=== PATIENT | female | born 1985 | race American Indian/Alaskan Native ===

== ENCOUNTER 2021-08-09 15:36 | Emergency (ER) | payer OTHER | END 2021-08-09 17:56 | disposition left against medical advice (07) | LOC: ED 15:36 | DX: R07.89 Other chest pain (principal); R10.9 Unspecified abdominal pain; Z53.21 Procedure and treatment not carried out due to patient leaving prior to being seen by health care provider ==

== ENCOUNTER 2021-10-10 05:54 | Inpatient (IN) | payer OTHER ==
[2021-10-04 13:17] LABS: Basophils % (Auto) 0.7 % (0.0-1.8); Eosinophils # (Auto) 0.4 K/mm3 (0.0-0.4); Hematocrit 34.2 % (30.3-42.9); Hemoglobin 10.7 gm/dl (10.1-14.3); Lymphocytes # (Auto) 1.7 K/mm3 (1.2-5.4); Lymphocytes % (Auto) 29.6 % (13.4-35.0); Mean Corpuscular HGB Conc 31 % (30-34); Mean Corpuscular Volume 72 fl (79-97); Monocytes # (Auto) 0.4 K/mm3 (0.0-0.8); Monocytes % (Auto) 6.2 % (0.0-7.3); Platelet Count 263 K/mm3 (140-440); Red Blood Count 4.73 M/mm3 (3.65-5.03)
[2021-10-04 13:32] LABS: Red Cell Distribution Width 24.1 % (13.2-15.2)
[2021-10-04 13:33] LABS: BUN/Creatinine Ratio 6; Blood Urea Nitrogen 7 mg/dL (7-17); Calcium 9.7 mg/dL (8.4-10.2); Hemolysis Index 3
--- NOTE | 2021-10-09 16:29 | History and Physical Report ---
History of Present Illness Date of examination: 10/04/21 Date of admission: 10/10/21 Chief complaint: heavy periods History of present illness: Visit Type: Pre-Op CC: no complaints. History of Present Illness: Pt presents for Pre Op. No c/o. ..................... ................................................Gemini Doyle October 04, 2021 10:45 AM mask,Patient denies fever, cough, shortness of breath and exposure to COVID-19. Pt here for pre op for myomectomy. She had previous myomectomy in October on 2020. Currently has 6cm intrauteirne fibroid and severe menorrhagia that has caused her hospital admission for blood transfusions as well as recurrent iron transfusions. All risk/benefits/alternatives were d/w pt and questions were addressed and answered. Consents signed and plcaced on the chart. Vital Signs: Patient Profile: 36 Years Old Female LMP: 09/13/2021 Height: 67 inches Weight: 222 pounds BMI: 34.77 Temp: 97.6 degrees F BP sittin / 74 (left arm) Menstrual History: LMP (date): 09/13/2021 Past History : 0 FOOD CHECKER History Uterine Surgery (not C/S): negative Operations: positive Breast Reduction: 2009 Myomectomy:09/2020 Hospitalizations: negative Anesthesia Complications: negative Abnormal PAP: negative Uterine Anomaly: negative BLU Exposure: negative Infertility: negative Infection History HIV Risk Eval: no Personal hx. of genital herpes: no Hx of STD: Trichomonas Other: chlamydia GC Active Medications (reviewed today): norethindrone acetate 5 mg tablet (norethindrone acetate) 1 tablet by mouth twice a day (21) 1.5-30 mg-mcg tablet (norethindrone ac-eth estradiol) 1 tablet by mouth three times a day take 3 times per day for 3 days. then 2 times per day for 3 days then on time per day until end of pack. Then start new pack metronidazole 500 mg tablet (metronidazole) Take 1 tablet by mouth twice a day Take with food. Do not drink alcohol while taking this medication. Provera 10 mg tablet (medroxyprogesterone) Take 1 tablet by mouth three times a day for 10 days as directed ferrous sulfate 325 mg (65 mg iron) tablet (ferrous sulfate) 1 tablet by mouth once a day ibuprofen 800 mg tablet (ibuprofen) 1 tablet by mouth every eight hours as needed for pain Current Allergies (reviewed today): No known allergies Past Medical History: Reviewed history from 06/14/2021 and no changes required: Asthma Fibroids PCOS Past Surgical History: Reviewed history from 06/14/2021 and no changes required: positive Breast Reduction: 2009 Myomectomy:09/2020 [--[facility]] Risk Factors: Smoked Tobacco Use: Never smoker Smokeless Tobacco Use: Never Passive Smoke Exposure: no HIV High Risk Behavior: no Exercise: no Seatbelt Use: 100 % [[facility]] [Labs In-House] Physical Exam Appearance: well developed, well nourished, no acute distress Other Exams Lungs: no rales, rhonchi, or wheezes Heart: S1, S2, no murmur, rub, or gallop Abdomen: soft, non-tender, no masses, bowel sounds normal Extremities: normal alignment, no joint enlargement, crepitus, masses or tenderness; normal tone and strength Genitourinary Exam Comments: deferred Past History Past Medical History: other (see hpi) Past Surgical History: other (see hpi) FOOD CHECKER History: other (see hpi) Family/Genetic History: other (see hpi) Social history: other (see hpi) Medications and Allergies Allergies Allergy/AdvReac Type Severity Reaction Status Date / Time Penicillins Allergy migraine Verified 10/03/21 11:29 Sulfa (Sulfonamide Allergy Migraine Verified 10/03/21 11:29 Antibiotics) Home Medications Medication Instructions Recorded Confirmed Last Taken Type Albuterol Sulfate [Proventil Hfa] 2 puff IH Q4H PRN 10/03/21 10/03/21 Unknown History DULoxetine [Cymbalta] 30 mg PO QDAY 10/03/21 10/03/21 Unknown History Review of Systems All systems: negative - Vital Signs Vital signs: Vital Signs Temp Pulse Resp BP Pulse Ox 98.7 F 64 18 117/78 100 10/04/21 13:00 10/04/21 13:00 10/04/21 13:00 10/04/21 13:00 10/04/21 13:00 Temp Pulse Resp BP Pulse Ox 98.7 F 64 18 117/78 100 10/04/21 13:00 10/04/21 13:00 10/04/21 13:00 10/04/21 13:00 10/04/21 13:00 - Physical Exam Breasts: Positive: deferred Cardiovascular: Normal S1, Normal S2 Lungs: Positive: Clear to auscultation, Normal air movement Abdomen: Positive: normal appearance, soft. Negative: distention, tenderness, guarding Genitourinary (Female): Positive: other (deferred until EUA) Results Result Diagrams: 10/04/21 13:00 10/04/21 13:00 All other labs normal. Assessment and Plan - Patient Problems (1) Fibroids, submucosal Status: Acute Plan to address problem: -admit -preapare for abd myomectomy. All risk,benefits, and alternatives were d/w pt and questions were addressed and answered. -consents signed and placed on the chart. (2) Menometrorrhagia Status: Acute
[2021-10-10] MEDS ORDERED: BACTERIOSTATIC SODIUM CHLORIDE 0.9% 30 ML VIAL INFILTRATI ONE (06:46)
[2021-10-10] MEDS ORDERED: SODIUM CHLORIDE 0.9% P/F 10 ML VIAL INFILTRATI NR (07:00)
[2021-10-10] MEDS ORDERED: BUPIVACAINE/PF (0.25%) 2.5 MG/ML 30 ML VIAL INFILTRATI SCH (07:00)
[2021-10-10] MEDS ORDERED: fentaNYL 100 MCG/2 ML INJ IV SCH (07:00)
[2021-10-10] MEDS ORDERED: MIDAZOLAM 2 MG/2 ML INJ IV NR (07:00)
[2021-10-10] MEDS ORDERED: SCOPOLAMINE TRANSDERMAL PATCH 72 HR TD NR (07:00)
[2021-10-10] MEDS ORDERED: VASOPRESSIN 20 UNIT/1 ML INJ ONE (07:10)
[2021-10-10] MEDS: LACTATED RINGERS 1,000 ML IV SCH ×2 (07:10→16:03)
[2021-10-10] MEDS ORDERED: SODIUM CHLORIDE 0.9% 100 ML ONE (07:10)
[2021-10-10] MEDS ORDERED: ANTICOAGULANT SOD CITRATE SOLUTION MC ONE ×2 (07:10→09:02)
[2021-10-10] MEDS ORDERED: SCOPOLAMINE TRANSDERMAL PATCH 72 HR TD ONE (07:23)
--- NOTE | 2021-10-10 07:23 | Anesthesia Consultation ---
Anesthesia Consult and Med Hx Date of service: 10/10/21 - Airway Anesthetic Teeth Evaluation: Good (glued on bead on the upper front incisors) ROM Head & Neck: Adequate Mental/Hyoid Distance: Adequate Mallampati Class: Class II Intubation Access Assessment: Probably Good - Pre-Operative Health Status ASA Pre-Surgery Classification: ASA2 Proposed Anesthetic Plan: General Nerve Block: TAP - Pulmonary Hx Asthma: Yes (Last used inhaler 10/02/21) - Central Nervous System Hx Psychiatric Problems: Yes - Hematic Hx Anemia: Yes (Reciving Fe infusions) Hx Sickle Cell Disease: Yes (Trait only) - Other Systems Hx Alcohol Use: Yes (Occas) Hx Cancer: No Hx Obesity: Yes (BMI 34.1)
[2021-10-10] MEDS ORDERED: fentaNYL 100 MCG/2 ML INJ ONE (07:24)
[2021-10-10] MEDS ORDERED: FAMOTIDINE 20 MG/2 ML INJ IV ONE (07:24)
[2021-10-10] MEDS ORDERED: MIDAZOLAM 2 MG/2 ML INJ ONE (07:24)
--- NOTE | 2021-10-10 07:24 | Anesthesia Day of Surgery ---
Anesthesia Day of Surgery - Day of Surgery Patient Examined: Yes Patient H&P Reviewed: Yes Patient is NPO: Yes
[2021-10-10] MEDS ORDERED: BUPIVACAINE/PF (0.25%) 2.5 MG/ML 30 ML VIAL INFILTRATI ONE (07:27)
[2021-10-10] MEDS ORDERED: LIDOCAINE (1%) 10 MG/1 ML VIAL 20 ML MDV INFILTRATI NR (07:30)
[2021-10-10] MEDS ORDERED: dexAMETHasone 4 MG/ML VIAL ONE (07:37)
[2021-10-10] MEDS ORDERED: LIDOCAINE MPF (2%) 20 MG/1 ML VIAL 5 ML ONE (07:39)
[2021-10-10] MEDS ORDERED: propofoL 200 MG/20 ML VIAL IV ONE (07:39)
[2021-10-10] MEDS ORDERED: ROCURONIUM 50 MG/5 ML INJ IV ONE (07:39)
[2021-10-10] MEDS ORDERED: ONDANSETRON 4 MG/2 ML INJ ONE (07:39)
[2021-10-10] MEDS ORDERED: HYDROmorphone 1 MG/1 ML INJ ONE (07:39)
[2021-10-10] MEDS ORDERED: GENTAMICIN 80 MG in SODIUM CHLORIDE 0.9% 100 ML IV ONE (07:57)
[2021-10-10] MEDS ORDERED: GENTAMICIN/NS 120MG/100ML 120 MG/100 ML BAG IV SCH (08:00)
[2021-10-10] MEDS ORDERED: GENTAMICIN/NS 80 MG/100 ML 100 ML IV SCH (08:00)
[2021-10-10] MEDS ORDERED: BUPIVACAINE/PF (0.5%) 5 MG/1 ML 10 ML VIAL INFILTRATI NR (08:00)
[2021-10-10] MEDS ORDERED: FAMOTIDINE 20 MG/2 ML INJ IV NR (08:00)
[2021-10-10] MEDS ORDERED: GENTAMICIN/NS 80 MG/100 ML 100 ML IV ONE (08:03)
[2021-10-10] MEDS ORDERED: VASOPRESSIN 20 UNIT/1 ML INJ IM ONE (09:02)
[2021-10-10] MEDS ORDERED: SODIUM CHLORIDE 0.9% IRR 1,500 ML BOTTLE IR ONE (09:02)
[2021-10-10] MEDS ORDERED: SODIUM CHLORIDE 0.9% 100 ML IVPB IV ONE (09:02)
[2021-10-10] MEDS ORDERED: NEOSTIGMINE 10MG/10 ML INJ MDV ONE (10:04)
[2021-10-10] MEDS ORDERED: GLYCOPYRROLATE 0.4 MG/2 ML INJ ONE (10:04)
--- NOTE | 2021-10-10 10:04 | Operative Report ---
Operative Report Operative Report: Date of procedure: 10/10/2021 Pre-operative diagnosis: Menorrhagia Intrauterine fibroid Post-operative diagnosis: Same Procedure name(s): 1. Abdominal myomectomy 2. Examine anesthesia Surgeon: Dr. Orquidea Pruitt Foot Specialist: Dr. Neves Anesthesia: Gen. endotracheal anesthesia EBL: 75 mL Urine output: 150 mL of clear urine out at end the procedure Fluids: 1200 mL Findings: Approximately 6 to 7 cm cluster of fibroids removed from the uterus. Removal of the fibroid did result in entry into the uterine cavity. What appeared to be normal tubes bilaterally normal ovaries Indications: Patient with a history of fibroids and prolonged heavy menstrual bleeding desired removal of fibroid. All risk benefits and alternatives were discussed with the patient. Consents were signed and placed on the chart. Procedure: Procedure: Patient was taken to the operating room wishes placed under general endotracheal anesthesia in dorsal lithotomy position. The patient was then prepped and draped in normal sterile fashion. A low transverse abdominal incision was made with the scalpel and carried down to the underlying layer of fascia with the Bovie. The fascia was incised in the midline and this incision was extended bilaterally with the Bovie. The superior aspect of the fascia was grasped with clamps and dissected off the anterior rectus muscle. In similar fashion the inferior aspect of the fascia was grasped with [place] clamps and dissected off the anterior rectus muscle. The rectus muscles were bluntly divided in the midline. The peritoneum was identified and entered into sharply. This incision was extended superiorly and inferiorly via blunt and sharp d issection. The bowel was packed away with wet laps. The O'Deni-O'Cruz retractor was placed. The uterus was then exteriorized. Pitressin was placed subserosally over the post uterus to the fundus. The myomectomy was performed in usual fashion with the removal of one cluster of fibroids as stated above. Single posterior uterine incision were closed using several layers with 0 Vicryl. Excellent hemostasis was noted. There was copiously irrigated. Interceed was placed over the uterine incision. The uterus was returned to the abdomen. All instruments and laps were removed from the abdomen. Anterior rectus muscles were reapproximated using 3-0 Vicryl in a [id number] stitch. The anterior rectus fascia was reapproximated using 0 Vicryl in a running fashion. The subcutaneous fat was reapproximated using 2-0 Vicryl in interrupted sutures. The skin was reapproximated with 4-0 Monocryl in a running fashion with Surgicel placed over the skin incision. Sponge lap and needle counts were all correct 3. Patient was taken to the recovery room awake and in stable condition.
[2021-10-10] MEDS ORDERED: HYDROmorphone 0.5 MG/0.5 ML INJ ONE (10:08)
[2021-10-10] MEDS: HYDROmorphone 0.5 MG/0.5 ML INJ IV PRN ×4 (10:09→14:00)
[2021-10-10] MEDS ORDERED: ONDANSETRON 4 MG/2 ML INJ IV PRN ×2 (10:14→11:00)
[2021-10-10] MEDS ORDERED: IBUPROFEN 800 MG TAB PO PRN (11:00)
[2021-10-10] MEDS ORDERED: ACETAMINOPHEN 325 MG TAB PO PRN (11:00)
--- NOTE | 2021-10-10 11:59 | Post Anesthesia Evaluation ---
- Post Anesthesia Evaluation Patient Participated: Yes Airway Patent: Yes Stable Respiratory Function: Yes Nausea/Vomiting: No Temp > 96.8F: Yes Pain Manageable: Yes Adequeate Hydration: Yes Anesthesia Complications: No Block Receding Appropriately: Yes Patient on Ventilator: No
[2021-10-10] MEDS: GENTAMICIN/NS 80 MG/100 ML 100 ML IV SCH ×2 (16:04→23:52)
[2021-10-10] MEDS: KETOROLAC 30 MG/1 ML INJ IV PRN (16:06)
--- NOTE | 2021-10-10 16:12 | Event Note ---
Date: 10/10/21 (POST OP CHECK) Pt doing well. Findings were d/w pt. Just received pain meds so pain is well controlled at this time. Picture was also text to pt phone as per her request from provider. I d/w plan of care to DANE D/conchita valentin in 12 hours or the am and if stable d/c home tomorrow pm or am. She expressed understanding and all questions were addressed and answered.
[2021-10-10] MEDS: CLINDAMYCIN 600 MG/50 mL 600 MG/50 ML BAG IV SCH (18:26)
[2021-10-10] MEDS: oxyCODONE /ACETAMINOPHEN 5-325MG TAB PO PRN (21:40)
[2021-10-10] MEDS: diphenhydrAMINE 25 MG CAP PO PRN (21:40)
[2021-10-11] MEDS: CLINDAMYCIN 600 MG/50 mL 600 MG/50 ML BAG IV SCH (00:53)
--- NOTE | 2021-10-11 01:55 | Event Note ---
Date: 10/11/21 Patient called the answering service from her room with c/o smelling BV when she cleaned herself. RN made aware. Will pass along message to provider who performed the surgery.
[2021-10-11] MEDS: LACTATED RINGERS 1,000 ML IV SCH (02:03)
[2021-10-11] MEDS: KETOROLAC 30 MG/1 ML INJ IV PRN ×2 (02:56→08:41)
[2021-10-11 05:49] LABS: Hematocrit 30.2 % (30.3-42.9); Hemoglobin 9.3 gm/dl (10.1-14.3)
--- NOTE | 2021-10-11 08:27 | Progress Note ---
Assessment and Plan - Patient Problems (1) Fibroids, submucosal Current Visit: No Status: Acute (2) Menometrorrhagia Current Visit: No Status: Acute (3) S/P myomectomy Current Visit: Yes Status: Acute Plan to address problem: -doing well -routine post op care -d/c this pm or in the am pending pt progress. Subjective - Subjective Date of service: 10/11/21 Principal diagnosis: POD#1 s/p abdominal myomectomy Interval history: Pt did c/o feeling as if she has bv but states since showering and she no longer notes an odor. I advised that we will just monitor for now. She has had spontaneous voiding, +flattus and is asking for regular diet this pm. She does have anemia but no sx at this time and also notes that bleeding is much spray gun striper today than prior to sx when she came in. States overall she is doing well. I advised that if she con't to do well will consider d/c home this pm instead of in the am. Pt expressed understanding and agrees with plan of care a this time. Patient reports: appetite normal, voiding normally, pain well controlled, flatus, ambulating normally, no dizzy ambulation, no nauseated Objective - Vital Signs Latest vital signs: Vital Signs Temp Pulse Resp BP BP Pulse Ox 10/11/21 04:30 98.0 F 74 16 110/61 97 10/11/21 00:55 98.7 F 69 18 122/71 98 10/10/21 21:00 98 10/10/21 20:09 98.2 F 64 18 125/67 99 10/10/21 16:36 16 10/10/21 16:35 97.6 F 58 L 20 113/65 99 10/10/21 16:06 16 10/10/21 11:40 98.5 F 94 H 18 137/88 96 10/10/21 11:15 87 14 132/93 96 10/10/21 11:00 97.1 F L 92 H 14 146/86 100 10/10/21 10:45 87 14 143/88 100 10/10/21 10:30 92 H 14 142/90 100 10/10/21 10:15 90 14 139/84 100 10/10/21 10:10 81 14 139/88 100 10/10/21 10:05 85 14 126/78 100 10/10/21 10:01 97.2 F L 87 14 145/90 100 Intake and Output 10/10/21 10/11/21 10/11/21 22:59 06:59 14:59 Intake Total 2819.743 6436 Output Total 800 1850 Balance 358.333 -450 Intake: IV 1572.735 8271 CLEOCIN 600 MG/50 mL 600 50 mg In 50 ml @ 100 mls/hr IV Q8H MADHAV Rx#:[id number] Gentamicin/Ns 80 mg/100 100 ml 100 ml @ 200 mls/hr IV Q8H MADHAV Rx#:[id number] Lactated Ringers 1,000 ml 215.259 5277 @ 100 mls/hr IV DIRECT MADHAV Rx#:[id number] Oral 120 100 Intake, Free Water 300 Output: Urine 800 1850 Indwelling Catheter 800 1850 Other: Total, Intake Amount 120 100 Total, Output Amount 800 350 Voiding Method Indwelling Catheter - Exam Cardiovascular: Present: Normal S1, Normal S2 Lungs: Present: Clear to auscultation, Normal air movement Abdomen: Present: normal appearance, soft, normal bowel sounds. Absent: distention, tenderness, guarding Incision: Present: normal, dry, intact (open to air) - Labs Labs: Abnormal lab results 10/11/21 Range/Units 05:20 Hgb 9.3 L (10.1-14.3) gm/dl Hct 30.2 L (30.3-42.9) %
[2021-10-11] MEDS: oxyCODONE /ACETAMINOPHEN 5-325MG TAB PO PRN (14:29)
[2021-10-11] MEDS: diphenhydrAMINE 25 MG CAP PO PRN (14:30)
--- NOTE | 2021-10-11 20:17 | Discharge Summary ---
Providers - Providers Date of Admission: 10/10/21 05:54 Attending physician: ASIF MILLER Primary care physician: MATCH UP PERSON Hospitalization Disposition: 30 STILL A PATIENT - Discharge Diagnoses (1) Fibroids, submucosal Status: Acute (2) Menometrorrhagia Status: Acute (3) S/P myomectomy Status: Acute Plan - Discharge Medications Prescriptions: Docusate Sodium [Colace] 100 mg PO BID PRN #60 capsule PRN Reason: Constipation Ibuprofen [Motrin 800 MG tab] 800 mg PO Q8HR PRN #30 tablet PRN Reason: Pain, Moderate (4-6) oxyCODONE /ACETAMINOPHEN [Percocet 5/325] 1 tab PO Q4HR #20 tab - Provider Discharge Summary Activity: routine, no sex for 6 weeks, no heavy lifting 4 weeks Diet: routine Instructions: routine Additional instructions: [] Smoking cessation referral if applicable(refer to patient education folder for contact #) [] Refer to [facility]'s [facility] Booklet Call your doctor immediately for: * Fever > 100.5 * Heavy vaginal bleeding ( >1 pad per hour) * Severe persistent headache * Shortness of breath * Reddened, hot, painful area to leg or breast * Drainage or odor from incision. * Keep incision clean and dry at all times and follow doctor's instructions regarding bathing/showering - Follow up plan Follow up: MARY ELLEN MARTINEZ MD [Primary Care Provider] - 7 Days ASIF MILLER MD [Staff Physician] - 7 Days
[2021-10-11 23:21] VITALS: BP 118/72
== END 2021-10-11 21:50 | disposition home or self-care (01) | DRG 743 ==
LOC: 3A 05:54 → OB 10:24
PROVIDERS: ADMIT Obstetrics & Gynecology; ATTEND Obstetrics & Gynecology
PROC: 0UB90ZZ Excision of Uterus, Open Approach (ICD-10-PCS; principal; 2021-10-10)
DX: D25.0 Submucous leiomyoma of uterus (principal); N92.1 Excessive and frequent menstruation with irregular cycle; Z88.0 Allergy status to penicillin; Z88.2 Allergy status to sulfonamides; Z20.822 Contact with and (suspected) exposure to COVID-19
CPT/HCPCS: 36415; 64450; 80048; 84703; 85014; 85018; 85025; 86850; 86900; 86901; 88305; G0378; J1815; J3490; J7502; C1765; J1100; J1170; J1580; J1885; J2250; J2405; J2704; J2710; J3010; J7120; U0003